=== PATIENT | female | born 1990 ===

== ENCOUNTER 2017-12-07 18:55 | Emergency (ER) | payer SELFPAY ==
[2017-12-07 19:08] VITALS: BP 124/78; PULSE 78; RESP 17; TEMP 98.3; O2SAT 100
[2017-12-07] MEDS ORDERED: Ciprofloxacin 0.3% OPTH SOLN OD STA (19:42)
[2017-12-07] MEDS ORDERED: Naproxen 500 MG TAB PO STA (19:42)
[2017-12-07] MEDS ORDERED: PROPARACAINE/FLUORESCEIN SOD 100 DROP/5 ML BOTTLE OD STA (19:42)
[2017-12-07] MEDS ORDERED: PROPARACAINE/FLUORESCEIN SOD 100 DROP/5 ML BOTTLE ONE (19:51)
[2017-12-07] MEDS ORDERED: Naproxen 500 MG TAB PO ONE (19:52)
--- NOTE | 2017-12-07 20:17 | ED PDOC ---
HPI: Eye Injury/Pain Time Seen by Provider: 12/07/17 19:17 Chief Complaint (Nursing): Eye Problem Chief Complaint (Provider): Eye Problem History Per: Patient History/Exam Limitations: no limitations Onset/Duration Of Symptoms: Days (x3) Current Symptoms Are (Timing): Still Present Additional Complaint(s): 26 year old female arrives to ED with a complaint of right eye pain, redness and photophobia ongoing for 3 days. Patient returns today from vacation in the [place]. Otherwise: (-) fever, (-) headache, (-) decreased vision, (- ) glasses, (+) contact lens use. PMD: none provided Past Medical History Reviewed: Historical Data, Nursing Documentation, Vital Signs Vital Signs: Last Vital Signs Temp 98.3 F 12/07/17 19:04 Pulse 78 12/07/17 19:04 Resp 17 12/07/17 19:04 BP 124/78 12/07/17 19:04 Pulse Ox 100 12/07/17 19:04 - Medical History PMH: No Chronic Diseases - Surgical History Surgical History: No Surg Hx - Family History Family History: States: Unknown Family Hx - Home Medications Home Medications: Ambulatory Orders Medication Instructions Recorded Ciprofloxacin 0.3% [Ciloxan 0.3% 1 drop OD QID #1 bottle 12/07/17 Ophth SOLN] Naproxen 500 mg PO BID PRN #20 tablet 12/07/17 - Allergies Allergies/Adverse Reactions: Allergies Allergy/AdvReac Type Severity Reaction Status Date / Time No Known Allergies Allergy Verified 12/07/17 19:08 Review of Systems ROS Statement: Except As Marked, All Systems Reviewed And Found Negative Constitutional: Negative for: Fever Eyes: Positive for: Pain (right eye with redness and photophobia). Negative for : Vision Change (decreased) Neurological: Negative for: Headache Physical Exam - Reviewed Nursing Documentation Reviewed: Yes Vital Signs Reviewed: Yes - Physical Exam Comments: GENERAL APPEARANCE: Patient is awake, alert, oriented x 3, in no acute distress. SKIN: Warm, dry; (-) cyanosis, (-) rash. EYES: Visual acuity : R eye 20/20 L eye 20/20. PERRLA. EOMI. (+) moderate conjunctival injection to right eye, (-) FB to conjunctiva or the lids, especially under the eye lids, (-) abrasion, (-) ulcer, (-) discharge. ENMT: Mucous membranes are moist. TMs: (-) erythema. Airway patent: (-) stridor. Pharynx: (-) erythema, (-) exudate. NECK: (-) tenderness, (-) stiffness, (-) meningismus, (-) lymphadenopathy. NEURO AND PSYCH: Mental status as above; (-) focal findings. 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 Advised to take medication as prescribed. Return to the emergency room at any time for any new or worsening symptoms. Patient states she fully agrees with and understands discharge instructions. States that she agrees with the plan and disposition. Verbalized and repeated discharge instructions and plan. I have given the patient opportunity to ask any additional questions. Scribe Attestation: Documented by Shazia Camarillo, acting as a scribe for Bertha Mcneill PA-C. Provider Scribe Attestation: All medical record entries made by the Scribe were at my direction and personally dictated by me. I have reviewed the chart and agree that the record accurately reflects my personal performance of the history, physical exam, medical decision making, and the department course for this patient. I have also personally directed, reviewed, and agree with the discharge instructions and disposition. Disposition - Clinical Impression Clinical Impression: Conjunctivitis - Patient ED Disposition Is Patient to be Admitted: No Counseled Patient/Family Regarding: Diagnosis, Need For Followup, Rx Given - Disposition Disposition: Routine/Home Disposition Time: 19:56 Condition: STABLE Additional Instructions: Thank you for letting us take care of you today. You were treated for conjunctivitis. The emergency medical care you received today was directed at your acute symptoms. If you were prescribed any medication, please fill it and take as directed. It may take several days for your symptoms to resolve.DO NOT WEAR YOUR CONTACT LENS, until cleared to do so by your eye doctor. Return to the Emergency Department if your symptoms worsen, do not improve, or if you have any other problems. Please contact your eye doctor in 2 days for re-evaluation and follow up. Bring any paperwork you were given at discharge with you along with any medications you are taking to your follow up visit. Our treatment cannot replace ongoing medical care by a primary care provider (PCP) outside of the emergency department. 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
== END 2017-12-07 20:26 | disposition home or self-care (01) ==
LOC: H.ER 18:55
DX: H10.9 Unspecified conjunctivitis (principal)

== ENCOUNTER 2018-06-24 20:35 | Emergency (ER) | payer OTHER ==
[2018-06-24 20:47] VITALS: TEMP 98.8
[2018-06-24 20:48] VITALS: BMI 24.7
--- NOTE | 2018-06-24 21:47 | ED PDOC ---
HPI: Chest Pain Time Seen by Provider: 06/24/18 21:02 Chief Complaint (Nursing): Chest Pain Chief Complaint (Provider): Chest pain History Per: Patient History/Exam Limitations: no limitations Onset/Duration Of Symptoms: Days (x3) Current Symptoms Are (Timing): Still Present Pain Scale Rating Of: 8 Additional Complaint(s): 27 year old female presents to the ED complaining of chest pain for 3 days. Patient rates pain 8/10 and reports pain is constant and worsening. She denies fever, cough, vomiting, diarrhea, leg swelling, leg pain, or recent prolonged immobilization. She states she recently switched her control pills 1 month ago. Patient reports pain is worse with deep inspiration. No medications taken prior to arrival. PMD: Dr. Brooke Past Medical History Reviewed: Historical Data, Nursing Documentation, Vital Signs Vital Signs: Last Vital Signs Temp 98.8 F 06/24/18 20:46 Pulse 85 06/24/18 20:46 Resp 18 06/24/18 20:46 BP 115/71 06/24/18 20:46 Pulse Ox 100 06/24/18 20:46 - Medical History PMH: No Chronic Diseases - Surgical History Surgical History: No Surg Hx - Family History Family History: States: No Known Family Hx Denies: CAD - Social History Alcohol: None Drugs: Denies - Home Medications Home Medications: Ambulatory Orders Medication Instructions Recorded Ciprofloxacin 0.3% [Ciloxan 0.3% 1 drop OD QID #1 bottle 12/07/17 Ophth SOLN] Naproxen 500 mg PO BID PRN #20 tablet 12/07/17 - Allergies Allergies/Adverse Reactions: Allergies Allergy/AdvReac Type Severity Reaction Status Date / Time No Known Allergies Allergy Verified 06/24/18 20:47 FANTA Risk Score for UA/NSTEMI - FANTA Risk Score Age > 64: NO 3 or more CAD Risk Factors: NO Known CAD (Stenosis greater than 50%): NO Aspirin use in past 7 days: NO Severe Angina: NO EKG ST changes greater than 0.5mm: NO Positive Cardiac Marker: NO FANTA Score: 0 Risk %: 5% Wells Criteria for PE - Wells Criteria for Pulmonary Embolism Clinical Signs and Symptoms of DVT: No P.E is #1 Diagnosis, or Equally Likely: No Heart Rate >100: No Immobilization at least 3 days;Surgery previous 4 weeks: No Previous, objectively diagnosed PE or DVT: No Hemoptysis: No Total Score: 0 Review of Systems ROS Statement: Except As Marked, All Systems Reviewed And Found Negative Constitutional: Negative for: Fever Cardiovascular: Positive for: Chest Pain Respiratory: Negative for: Cough Gastrointestinal: Negative for: Vomiting, Diarrhea Musculoskeletal: Negative for: Leg Pain Physical Exam - Reviewed Nursing Documentation Reviewed: Yes Vital Signs Reviewed: Yes - Physical Exam Appears: Positive for: No Acute Distress Head Exam: Positive for: ATRAUMATIC, NORMOCEPHALIC Skin: Positive for: Normal Color, Warm, Dry Eye Exam: Positive for: Normal appearance Neck: Positive for: Normal, Painless ROM Cardiovascular/Chest: Positive for: Regular Rate, Rhythm Respiratory: Positive for: Normal Breath Sounds, Other (pain with deep breath). Negative for: Wheezing, Respiratory Distress Gastrointestinal/Abdominal: Positive for: Normal Exam, Soft. Negative for: Tenderness Extremity: Positive for: Normal ROM Neurological/Psych: Positive for: Awake, Alert, Normal Tone, Oriented - Laboratory Results Result Diagrams: 06/24/18 22:18 06/24/18 22:18 - ECG ECG Rhythm: Positive for: Sinus Rhythm (normal) Rate: 88 O2 Sat by Pulse Oximetry: 100 (RA) Pulse Ox Interpretation: Normal Medical Decision Making Medical Decision Making: Initial Impression: Chest pain Initial Plan: --CMP --Troponin stat --CBC --D dimer --Chest X-ray Time: 38 --D Dimer negative, troponin negative, normal cardiac workup. Patient to receive fluids, recheck vitals. stable pt without PE risk factors or cardiac risk factors. pt feels well, stable for dc. follow up with pcp. Scribe Attestation: Documented by Rashid Millan acting as a scribe for Hola Barry MD. Provider Scribe Attestation: All medical record entries made by the Scribe were at my direction and personally dictated by me. I have reviewed the chart and agree that the record accurately reflects my personal performance of the history, physical exam, medical decision making, and the department course for this patient. I have also personally directed, reviewed, and agree with the discharge instructions and disposition. Disposition - Clinical Impression Clinical Impression: Atypical chest pain - Patient ED Disposition Is Patient to be Admitted: No Counseled Patient/Family Regarding: Studies Performed, Diagnosis, Need For Followup - Disposition Referrals: [facility] [Outside] [facility] [Outside] Darcy Henriquez MD [Staff Provider] - Disposition: Routine/Home Disposition Time: 00:39 Condition: IMPROVED Additional Instructions: follow up in the clinic in 2 days also with polymerization supervisor in 1-2 days return to the ED with any worsening or concerning symptoms Instructions: Chest Pain That Is Not Caused by the Heart (DC) Forms: [employer] (Azeri)
[2018-06-24 22:54] LABS: BASO % 0.2 % (0.0-2.0); EOS # 0.1 K/uL (0.0-0.7); EOS % 0.5 % (0.0-4.0); HEMOGLOBIN 11.8 g/dL (12.0-16.0); LYMPH # 2.4 K/uL (1.0-4.3); LYMPH % 24.9 % (20.0-40.0); MEAN CELL VOLUME 89.8 fl (81.0-99.0); MEAN CORPUSCULAR HEMOGLOBIN 29.8 pg (27.0-31.0); MEAN CORPUSCULAR HGB CONC 33.1 g/dL (33.0-37.0); MEAN PLATELET VOLUME 8.5 fl (7.2-11.7); MONO # 0.6 K/uL (0.0-0.8); MONO % 6.4 % (0.0-10.0); NEUT # 6.6 K/uL (1.8-7.0); RBC 3.98 Mil/uL (3.80-5.20); RED CELL DISTRIBUTION WIDTH 12.9 % (11.5-14.5); WHITE BLOOD COUNT 9.7 K/uL (4.8-10.8)
[2018-06-24 23:01] LABS: ALB/GLOB RATIO 1.2 (1.0-2.1); ALBUMIN 4.2 g/dL (3.5-5.0); ALT/SGPT 30 U/L (9-52); AST/SGOT 35 U/L (14-36); BLOOD UREA NITROGEN 20 mg/dl (7-17); CALCIUM 9.9 mg/dL (8.4-10.2); GFR NON-AFRICAN AMERICAN > 60
[2018-06-25] MEDS ORDERED: Sodium Chloride 0.9% 1,000 ML IV STA (00:47)
[2018-06-25 05:50] VITALS: BP 112/66; RESP 20
--- NOTE | 2018-06-25 08:13 | RAD ---
Date of service: 06/24/2018 HISTORY: chest pain COMPARISON: No prior. FINDINGS: LUNGS: Apical lordotic positioning. No active pulmonary disease. PLEURA: No significant pleural effusion identified, no pneumothorax apparent. CARDIOVASCULAR: No aortic atherosclerotic calcification present. Normal cardiac size. No pulmonary vascular congestion. OSSEOUS STRUCTURES: No significant abnormalities. VISUALIZED UPPER ABDOMEN: Normal. OTHER FINDINGS: None. IMPRESSION: No acute cardiopulmonary disease appreciated.
[2018-06-28 12:28] VITALS: PULSE 88; O2SAT 100
== END 2018-06-25 01:09 | disposition home or self-care (01) ==
LOC: H.ER 20:35
DX: R07.89 Other chest pain (principal)
CPT/HCPCS: 71045; 80053; 81025; 84484; 85025; 85378; 96374; 99283; J1885; J7030